=== PATIENT | female | born 1990 | race Caucasian/White ===

== ENCOUNTER 2019-04-27 15:06 | Emergency (ER) | payer MEDICAID ==
[2019-04-27] MEDS ORDERED: cefTRIAXone 1 GM, Lidocaine 1% 2.1 ML IM ONE ×2 (16:02)
--- NOTE | 2019-04-27 16:04 | EDM.PDOC ---
ED HPI GENERAL MEDICAL PROBLEM - General Chief Complaint: Fever Stated Complaint: BACK AND ABD PAIN/MOSTLY LEFT SIDE Time Seen by Provider: 04/27/19 15:50 Source of Information: Reports: Patient History Limitations: Reports: No Limitations - History of Present Illness INITIAL COMMENTS - FREE TEXT/NARRATIVE: 21-year-old female with left-sided flank and left abdominal pain for the past 2- 3 days, seen in the clinic yesterday and diagnosed with UTI or possible viral syndrome and started on Bactrim. She took her first dose of Bactrim this morning , is in today because of persistent nausea, flank pain and abdominal pain and just feels awful. Clinic note was reviewed, CBC was normal, UA did grow 50-100, 000 gram-negative rods. No dysuria. Onset: Gradual Duration: Day(s): (3 days) Context: Denies: Sick Contact Associated Symptoms: Reports: Fever/Chills (Fever and chills overnight, no fever at this time), Malaise, Other (Nausea but no vomiting). Denies: Chest Pain, Cough generalized Pain Score (Numeric/FACES): 7 - Related Data Allergies Allergy/AdvReac Type Severity Reaction Status Date / Time ibuprofen Allergy Hives Verified 04/27/19 15:17 Home Meds: Home Meds Sulfamethoxazole/Trimethoprim [Sulfamethoxazole-Tmp Ds Tablet] 1 tab PO BID [History] Past Medical History Endocrine/Metabolic History: Reports: Obesity/BMI 30+ Hematologic History: Reports: Other (See Below) Other Hematologic History: vitamin d deficiency Dermatologic History: Reports: Psoriasis - Past Surgical History Other GI Surgeries/Procedures: Gastric Sleeve Social & Family History - Tobacco Use Smoking Status *Q: Never Smoker Second Hand Smoke Exposure: No - Caffeine Use Caffeine Use: Reports: Soda - Recreational Drug Use Recreational Drug Use: No ED ROS GENERAL - Review of Systems Review Of Systems: See Below Constitutional: Reports: Fever, Chills, Malaise, Decreased Appetite HEENT: Reports: No Symptoms Respiratory: Denies: Shortness of Breath Cardiovascular: Denies: Chest Pain GI/Abdominal: Reports: Abdominal Pain, Nausea. Denies: Constipation, Diarrhea, Vomiting : Reports: Flank Pain. Denies: Dysuria, Frequency, Hematuria, Urgency Musculoskeletal: Reports: Back Pain (Left side) Skin: Reports: No Symptoms ED EXAM, GENERAL - Physical Exam Exam: See Below Exam Limited By: No Limitations General Appearance: Alert, No Apparent Distress Head: Atraumatic Respiratory/Chest: No Respiratory Distress, Lungs Clear Cardiovascular: Regular Rate, Rhythm Extremities: Normal Inspection. No: Pedal Edema Neurological: Alert, Oriented Skin Exam: Warm, Dry Course - Vital Signs Last Recorded V/S: Last Vital Signs Temp 97.7 F 04/27/19 15:34 Pulse 108 H 04/27/19 15:34 Resp 16 04/27/19 15:34 BP 130/77 04/27/19 15:34 Pulse Ox 97 04/27/19 15:34 - Orders/Labs/Meds Meds: Medications Discontinued Medications Generic Name Dose Route Start Last Admin Trade Name Freq PRN Reason Stop Dose Admin Ceftriaxone Sodium 1 gm/ 0 gm 04/27/19 16:02 04/27/19 16:10 Lidocaine HCl 2.1 ml IM 04/27/19 16:03 1 inj ONETIME ONE Administration Departure - Departure Time of Disposition: 16:28 Disposition: Home, Self-Care 01 Clinical Impression: Pyelonephritis - Discharge Information Instructions: Pyelonephritis, Adult, [id number] Referrals: Teto Bullock MD [Primary Care Provider] - Forms: ED Department Discharge Care Plan Goals: Continue with antibiotic as prescribed, along with fluids and anti- inflammatories for fever and pain. Recheck in 24-48 hours if not improving.
[2019-04-27 16:23] VITALS: BP 130/77; PULSE 108
== END 2019-04-27 16:28 | disposition home or self-care (01) ==
LOC: JP.ED 15:06
DX: N12 Tubulo-interstitial nephritis, not specified as acute or chronic (principal); E66.9 Obesity, unspecified; Z68.35 Body mass index [BMI] 35.0-35.9, adult; Z88.6 Allergy status to analgesic agent
CPT/HCPCS: 96372; 99284; J0696; J2001

== ENCOUNTER 2019-12-26 23:24 | Emergency (ER) | payer MEDICAID ==
[2019-12-27 00:22] VITALS: BP 158/95; PULSE 96
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
== END 2019-12-27 02:02 | disposition home or self-care (01) ==
LOC: JP.ED 23:24
DX: S43.401A Unspecified sprain of right shoulder joint, initial encounter (principal); E66.9 Obesity, unspecified; Z68.39 Body mass index [BMI] 39.0-39.9, adult; Z88.6 Allergy status to analgesic agent; V86.69XA Passenger of other special all-terrain or other off-road motor vehicle injured in nontraffic accident, initial encounter
CPT/HCPCS: 73030-26-RT; 73030-RT; 99284